=== PATIENT | female | born 1980 | race Caucasian/White ===

== ENCOUNTER → 2020-01-24 | Outpatient (CLI) | payer OTHER ==
--- NOTE | 2020-02-09 10:39 | EEG ---
[facility] [place] [address] ELECTROENCEPHALOGRAM Name: NOEMY SHULTZ Room #: REG LINDAMilan MManjinder.#: [id number] Admission: 01/24/20 Attend Phys: Jennifer Cosby DO Discharge: Date of : 80 Report #: [id number] THIS REPORT FOR: //name// CC: Aron Cosby DATE OF SERVICE: 01/24/2020 This patient is being evaluated for the possibility of seizure. EEG was done by placing the electrodes by standard 10-20 system of electrode placement. Both referential and sequential montages were used for recording. Background activity in this patient's EEG is about 10 Hz and 30 microvolt. The patient became drowsy and that is associated with bilateral slowing and vertex sharp waves. Photic stimulation is unremarkable. Throughout the record, no active epileptiform activity was noticed. IMPRESSION: This patient's EEG is within normal limits. Thank you very much for this referral. <ELECTRONICALLY SIGNED> By: Manuel Forman MD 02/09/20 [id number] 1520 Manuel Forman MD /nt
== END ==
LOC: CV 09:02
PROVIDERS: ATTEND Psychiatry & Neurology Neurology
DX: G25.3 Myoclonus (principal)